=== PATIENT | female | born 1975 | race Caucasian/White ===

== ENCOUNTER 2017-09-13 20:24 | Inpatient (IN) ==
[2017-09-13] MEDS ORDERED: CALCIUM CARBONATE Chewable 500mg TABLET PO PRN ×2 (20:38→23:56)
[2017-09-13] MEDS ORDERED: ACETAMINOPHEN 500 MG TABLET PO PRN ×2 (20:38→23:56)
[2017-09-13] MEDS ORDERED: MAG-AL + SIM ORAL LIQUID 30ml PO PRN ×2 (20:38→23:56)
[2017-09-13] MEDS ORDERED: CARBOPROST 250 MCG/ML INJECTION IM PRN (20:38)
[2017-09-13] MEDS ORDERED: LR 1,000 ML IV PRN (20:38)
[2017-09-13] MEDS ORDERED: METHYLERGONOVINE 0.2 MG/ML INJECTION IM PRN (20:38)
[2017-09-13] MEDS ORDERED: LIDOCAINE 1% (10mg/ml) 2mL INJ PF SDV ID PRN (20:38)
[2017-09-13] MEDS ORDERED: AMPICILLIN 1 GM in NS 100 ML IV SCH (20:45)
[2017-09-13] MEDS ORDERED: D5LR 1,000 ML IV PRN (20:49)
[2017-09-13] MEDS ORDERED: OXYTOCIN DRIP 30 UNIT/500 ML ML IV PRN (20:49)
--- OUTSIDE RECORDS SUMMARY | 2017-09-13 20:51 | External Medical Summary | Continuity of Care Document ---
:1975 Author Organization [facility] Address [address] [place], [place] [id number] Phone Care Team Providers Name Role Phone Radha Holloway MD Unavailable Unavailable Allergies, Adverse Reactions, Alerts Substance Reaction Severity Status No Known Drug Allergies Unknown Active Medications Medication Instructions Dosage Effective Dates Status Comments (start - stop) Zyrtec 10 mg capsule - Active Multi For Her 18 mg - Active iron-600 mcg-40 mcg capsule Stool Softener 50 mg take 1 capsule (50MG) 50 MG - Active capsule by oral route every day at bedtime as needed iron ER 325 mg (65 mg - Active iron) capsule,extended release sertraline 25 mg take 1 tablet by oral 25 MG - Active tablet route every day VITAMIN E (unknown - Active strength) VITAMIN D3 (unknown - Active strength) VITAMIN B-6 (unknown - Active strength) CALCIUM (unknown take 1 by Oral route - Active strength) every day Problems Condition Effective Dates (start - stop) Clinical Status 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) w/o abn findings Supervision of elderly multigravida, - third trimester 34 weeks gestation of - Supervision of elderly multigravida, - first trimester Encntr screen for infections w sexl - mode of transmiss Encounter for screening for oth - infec/parastc diseases Encounter for screening of - mother 8 weeks gestation of - Supervision of elderly multigravida, - second trimester 16 weeks gestation of - Supervision of elderly multigravida, - first trimester 12 weeks gestation of - Supervision of elderly multigravida, - second trimester 24 weeks gestation of - Supervision of elderly multigravida, - second trimester 20 weeks gestation of - Supervision of elderly multigravida, - second trimester 20 weeks gestation of - Supervision of elderly multigravida, - third trimester 28 weeks gestation of - Supervision of elderly multigravida, - third trimester 36 weeks gestation of - Supervision of elderly multigravida, - third trimester 30 weeks gestation of - Supervision of elderly multigravida, - third trimester 36 weeks gestation of - Supervision of elderly multigravida, - third trimester 32 weeks gestation of - Pap Smear Screening, Cervix - Procedures Procedure Date OB Visit No Charge Results Test Name Date and Time Measure Units Reference Range Abnormal Flag Comments Unknown Advance Directives Directive Yes / No Effective Date File Name Unknown Encounters Encounter Practice Location Reason(s) Diagnoses Date Provider Care Team Description For Visit Members Juan Antonio Yan Supervision of Oct-2 [place] Referring In Womens elderly - [place]. 700 Provider: giselle Camacho, 7 Medical [place] [address] [email or web address] [place] R, 1522, weeks gestation [place] Peterson, of 120, Medical [facility] [id number], [place], [facility] 120, [place] [id number] Yuriy, tel: , [place]. [place], [id number] tel: [phone]. [phone] tel:[phone] Juan Antonio Yan Supervision of Oct-2 [place] Referring In Womens Ultrasound elderly 5-201 [place]. 700 Provider: giselle Camacho, 7 Medical [place] PO Box third [id number] [place] R, 1522, weeks gestation [place] Peterson, of 120, Medical [facility] [id number], [place], [place] 120, [place] [id number] Yuriy, tel: , [place]. [place], tel: [phone]. [phone] tel:[phone] Juan Antonio Yan Supervision of Oct-1 [place] Referring In Womens elderly 0-201 [place]. 700 Provider: Health [place], multigravida, 7 Medical [place] PO Box third [email or web address] Center [place] R, 1522, weeks gestation [place] Peterson, of 120, Medical [facility] [id number], [place], [place] 120, [place] [id number] Yuriy, tel: , [place]. [place], tel: [phone]. [phone] tel:[phone] Juan Antonio Yan Supervision of Sep-2 [place] Referring In Womens elderly 6-201 [place]. 700 Provider: Sadia RAYA, jesugravijennifer, 7 Medical [place] PO Box third [id number] Center [place] R, 1522, weeks gestation [place], of 120, Medical [facility] [id number], [place], [place] 120, [place] [id number] Yuriy, tel: , [place]. [place], tel: [phone]. [id number] tel:[phone] Juan Antonio Yan Supervision of Sep-1 [place] Referring In Womens elderly 2-201 [place]. 700 Provider: Sadia RAYA, jesugravida, 7 Medical [place] PO Box third [email or web address] Center [place] R, 1522, weeks gestation [place] Peterson, of 120, Medical [facility] [id number], [place], [place] 120, [place] [id number] Yuriy, tel: , [place]. [place], tel: [phone]. [phone] tel:[phone] Juan Antonio Yan Supervision of Aug-2 [place] Referring In Womens elderly 9-201 [place]. 700 Provider: Health [place], multigravida, 7 Medical [place] PO Box third [email or web address] Center [place] R, 1522, weeks gestation [place] Peterson, of 120, Medical [facility] [id number], [place], [place] 120, [place] [id number] Yuriy, tel: , [place]. [place], tel: [phone]. [id number] tel:[phone] Juan Antonio Yan Supervision of Aug-0 [place] Referring In Womens elderly 1-201 [place]. 700 Provider: jesu Camachogravijennifer, 7 [facility] Box second Center [place] R, 1522, [email or web address] weeks [place] Peterson, gestation of 120, Medical [place], Yuriy, [place] [id number], [place], [place] 120, [place] [id number] Yuriy, tel: , [place]. [place] tel: [phone]. [id number] tel:[phone] Juan Antonio Yan Supervision of Senthil-0 [place] Referring In Womens elderly 5-201 [place]. 700 Provider: eryn Camachoavijennifer, 7 [facility] Center [place] R, 1522, [id number] weeks [place] Peterson, gestation of 120, Medical [place], [facility] [id number], [place], [place] 120, [place] [id number] Yuriy, tel: , [place]. [place] tel: [phone]. [phone] tel:[phone] Juan Antonio Yan Supervision of Senthil-0 [place] Referring In Womens Ultrasound elderly 5-201 [place]. 700 Provider: eryn Camachoavijennifer, 7 [facility] second Center [place] R, 1522, [email or web address] weeks [place] Peterson, gestation of 120, Medical [place], [facility] [id number], [place], [place] 120, [place] [id number] Yuriy, tel: , [place]. [place] tel: [phone]. [phone] tel:[phone] Juan Antonio Yan Supervision of Richy-0 [place] Referring In Womens elderly 6-201 [place]. 700 Provider: jesu Camachogravijennifer, 7 [facility] second Center [place] R, 1522, [id number] weeks [place] Peterson, gestation of 120, Medical [place], [facility] [id number], [place], [place] 120, [place] [id number] Yuriy, tel: , [place]. [place], tel: [phone]. [id number] tel:[phone] Juan Antonio Yan Supervision of [place] Referring In Womens elderly [place]. 700 Provider: Sadia RAYA, multigravida, 7 Medical [place] PO Box first [email or web address] Center [place] R, 1522, weeks gestation , [place] [address] [place], of 120, Medical [place], Yuriy, [place] [id number], [place], [place] 120, [place] [id number] Yuriy, tel: , [place]. [place], tel: [phone]. [phone] tel:[phone] Juan Antonio Yan Supervision of [place] Referring In Womens elderly - [place]. 700 Provider: Sadia RAYA, multigravida, 7 Medical [place] PO Box first Center [place] R, 1522, trimesterEncntr , [place] [address] Gabby, screen for 120, Medical [place], infections w sexl Yuriy, [place] [id number], mode of [place], [facility] 120, [place] transmissEncounte [id number] Yuriy, tel: r for screening , [place]. [place] for oth tel:[phone]. 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 Provider: Sadia RAYA, (routine) w/o abn 6 700 [facility] Box findingsPap Smear Medical [place] R, 1522, Screening, Cervix Center [address], [facility], 120, [place] [id number], Yuriy, [facility] 120, [place] Yuriy RHODES, tel:[phone] [place], , [place]. [id number]. tel: tel: [phone] Juan Antonio Yan Sep- [place] Referring In Womens [place]. 700 Provider: Sadia RAYA, 4 Medical [facility] Box Center [place] R, 1522, , [place] [address] [place], 120, Medical [facility] [id number], [place], [place] 120, [place] [id number] Yuriy, tel: , [place]. [place], tel: [phone]. [phone] tel:[phone] Associates Yuriy Jul- [place] Referring In Womens 3-201 [place]. 700 Provider: Health [place], 2 Medical [place] PO Box [place] Seo 1522, , [place] 700 [place], 120, [facility] [id number], [place], [place] 120, [place] [id number] [place], tel: , [place]. [place], tel: [phone]. [id number] tel:[phone] Associates Yuriy Jan-2 Jamil[place] In Womens 9-200 [place]. Health [place], 9 700 [place] [id number], [place] [address] [place], [facility], 120, [id number], [place], [place], tel: [phone] , [place]. tel: [phone] Family History Family Member Diagnosis Age At Onset Mother Anemia Maternal Grandfather Anemia Paternal aunt Cancer, breast Paternal grandmother Liver Disease Father Prostate Cancer Immunizations Vaccine Date Status Comments Influenza, injectable, completed Source: New Immunization Record quadrivalent, preservative free, 3 yrs or older Tdap completed Source: New Immunization Record Influenza, injectable, completed Source: Other Provider quadrivalent, preservative free, 3 yrs or older Payers Payer name Insurance type Covered libertarian ID Authorization(s) [facility] [id number] [facility] [id number] [facility] [id number] Social History Type Description Quantity Date Captured Alcohol Use Details No Caffeine Use Details Unknown Tobacco Use Status Unknown Smoking Status Never smoker Vital Signs Date / Height Weight BMI Pulse Blood Temperature Respiratory Body Head BMI Time: Rate Pressure Rate Surface Circumference percentile Area 209.20 35.3 129/75 -2017 lbs 5 mm[Hg] 3:05 kg/m PM eter (2) Chief Complaint And Reason For Visit Unknown Chief Complaint And Reason For Visit Reason For Referral Reason For Referral Unknown Plan Of Care Date Type Action Status Goal Lifestyle education regarding completed diet Appointment Teetee Larry BOOKED Appointment Teetee Larry BOOKED Future Order: Lab Order Pap Smear With HPV Reflex If Ordered ASCUS (WPMPap1) Future Order: Radiology Order OB Detailed Complete Ultrasound Ordered ([id number]) Future Order: Radiology Order Ultrasound OB Follow-up ([id number]) Ordered Future Order: Lab Order Pap Smear With HPV Reflex If Ordered ASCUS (WPMPap1) Date Type Problem Goal Intervention Status Start Date Unknown. History Of Present Illness Encounter Date Complaint History Of Present Illness This patient has no known history of present illness Functional Status Encounter Date Functional Assessment Cognitive Assessment Unknown Medications Administered Medication Instructions Dosage Effective Dates (start - stop) Status Comments Drug Treatment Unknown Instructions Date Instruction Additional Information HIV and other routine tests risk factors identified by history anticipated course of care nutrition and weight gain counseling, special diet toxoplasmosis precautions (cats / raw meat) sexual activity exercise indications for ultrasound influenza vaccine environmental / work hazards travel use of any medications (including supplements, vitamins, herbs, OTC drugs) domestic violence seat belt use childbirth classes / hospital facilities hospital registration genetic testing Giving encouragement to exercise Related to Body mass index 29.0-29.9 Lifestyle education regarding diet Related to Body mass index 29.0-29.9
--- OUTSIDE RECORDS SUMMARY | 2017-09-13 20:51 | External Medical Summary | Continuity of Care Document ---
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) w/o abn findings Supervision of elderly multigravida, - first trimester Encounter for screening of - mother 8 weeks gestation of - Encntr screen for infections w sexl - mode of transmiss Encounter for screening for oth - infec/parastc diseases Supervision of elderly multigravida, - second trimester 16 weeks gestation of - Supervision of elderly multigravida, - first trimester 12 weeks gestation of - Supervision of elderly multigravida, - second trimester 20 weeks gestation of - Supervision of elderly multigravida, - second trimester 20 weeks gestation of - Pap Smear Screening, Cervix - Procedures Procedure Date Unknown Results Test Name Date and Time Measure Units Reference Range Abnormal Flag Comments Unknown Advance Directives Directive Yes / No Effective Date File Name Unknown Encounters Encounter Practice Location Reason(s) Diagnoses Date Provider Care Team Description For Visit Members Juan Antonio Yan Supervision of Apr-0 [place] Referring In Womens elderly 5-201 [place]. 700 Provider: Sadia RAYA, erynavijennifer, 7 Medical [place] PO Box second Center [place] R, 1522, [id number] weeks [place] Peterson, gestation of 120, Medical [place], [facility] [place] , [place], [facility] 120, [place] [id number] Yuriy, tel: , [place]. [place], tel: [phone]. [phone] tel:[phone] Juan Antonio Yan Supervision of Apr-0 [place] Referring In Womens Ultrasound elderly 5-201 [place]. 700 Provider: eryn Camachoavijennifer, 7 Medical [place] PO Box second Center [place] R, 1522, [email or web address] weeks [place] Peterson, gestation of 120, Medical [place], [facility] [id number], [place], [facility] 120, [place] [id number] Yuriy, tel: , [place]. [place], tel: [phone]. [phone] tel:[phone] Juan Antonio Yan Richy-3 [place] In Womens 0-201 [place]. 700 Sadia RAYA, 7 Medical PO Box Center 1522, [place] Peterson, 120, [place], Yuriy [id number], [place], [place] [id number] tel: , [place]. tel: [phone] Juan Antonio Yan Supervision of Richy-0 [place] Referring In Womens elderly 6-201 [place]. 700 Provider: Sadia RAYA, jesugravida, 7 Medical [place] PO Box second Center [place] R, 1522, [email or web address] weeks Dr, [place] 700 [place], gestation of 120, Medical [place], Yuriy, [place] [id number], [place], [facility] 120, [place] [id number] Yuriy, tel: , [place]. [place], tel:[phone]. [phone] tel:[phone] Juan Antonio Yan Supervision of [place] Referring In Womens elderly 9- [place]. 700 Provider: Sadia RAYA, multigravida, 7 Medical [place] PO Box first [email or web address] Center [place] R, 1522, weeks gestation , [place] [address] [place], of 120, Medical [place], [place], [place] [id number], [place], [facility] 120, [place] [id number] Yuriy, tel: , [place]. [place], tel:[phone]. [phone] tel:[phone] Juan Antonio Yan Supervision of [place] Referring In Womens elderly - [place]. 700 Provider: Sadia RAYA, multigravida, 7 Medical [place] PO Box first Center [place] R, 1522, trimesterEncounte , [place] [address] [place], r for 120, Medical [place], screening of [facility] [id number], mother8 weeks [place], [facility] 120, [place] gestation of [id number] Yuriy, tel: pregnancyEncntr , . [place], screen for tel:[phone]. infections w sexl [id number] tel: mode of [id number] transmissEncounte r for screening for oth infec/parastc diseases Juan Antonio Yan Encntr for nurse obgyn Dec- Navarro Referring In Womens exam (general) - [facility]. Provider: Sadia RAYA, (routine) w/o abn 6 700 [place] PO Box findingsPap Smear Medical [place] R, 1522, Screening, Cervix Center [facility] Dr Gabby, [facility], 120, [place] [id number], [place], [facility] 120, [place] Yuriy RHODES, tel: [phone] [place], , [place]. [id number]. tel: tel:[phone] Juan Antonio Yan Sep- [place] Referring In Womens - [place]. 700 Provider: Health [place], 4 Medical [facility] [place] Seo 1522, , [place] 700 [place], 120, Medical [facility] [id number], [place], [facility] 120, [place] [id number] [place], tel:+ , [place]. [place], tel: [phone]. [phone] tel:[phone] Associates Y[facility]y Jul-2 [place] Referring In Womens 3-201 [place]. 700 Provider: Health [place], 2 Medical [facility] [place] Seo 1522, , [place] 700 [place], 120, Medical [facility] [id number], [place], [place] 120, [place] [id number] [place], tel: , [place]. [place], tel: [phone]. [phone] tel:[phone] Associates Y[facility]y Apr-2 Jamilah In Womens 9-200 Jayne. Health [place], 9 700 [facility] 1522, Center Dr Gabby, [facility], 120, [id number], [place], [place], tel: [phone] , [place]. tel: [phone] Family History Family Member Diagnosis Age At Onset Mother Anemia Maternal Grandfather Anemia Paternal aunt Cancer, breast Paternal grandmother Liver Disease Father Prostate Cancer Immunizations Vaccine Date Status Comments Influenza, injectable, quadrivalent, completed Source: Other Provider preservative free, 3 yrs or older Payers Payer name Insurance type Covered republican ID Authorization(s) [facility] [id number] Social History Type Description Quantity Date Captured Unknown Vital Signs Date / Height Weight BMI Pulse Blood Temperature Respiratory Body Head BMI Time: Rate Pressure Rate Surface Circumference percentile Area Unknown Chief Complaint And Reason For Visit Unknown Chief Complaint And Reason For Visit Reason For Referral Reason For Referral Unknown Plan Of Care Date Type Action Status Goal Lifestyle education regarding completed diet Appointment Teetee Larry BOOKED Future Order: Lab Order Pap Smear With HPV Reflex If Ordered ASCUS (WPMPap1) Future Order: Radiology Order OB Detailed Complete Ultrasound Ordered ([id number]) Future Order: Lab Order Pap Smear With [...]
--- OUTSIDE RECORDS SUMMARY | 2017-09-13 20:51 | External Medical Summary | Continuity of Care Document ---
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 700 Provider: giselle Camacho, 7 [facility] [place] R, 1522, [id number] weeks [place], gestation of 120, Medical [place], [facility] , [place], [place] 120, [place] [id number] Yuriy, tel: , [place]. [place], tel: [phone]. [phone] tel:[phone] Juan Antonio Yan Supervision of [place] Referring In Womens elderly [place]. 700 Provider: giselle Camacho, 7 [facility] [place] R, 1522, weeks [place] Peterson, gestation of 120, Medical [place], [facility] [id number], [place], [place] 120, [place] [id number] Yuriy, tel: , [place]. [place], tel: [phone]. [id number] tel:[phone] Juan Antonio Yan Supervision of [place] Referring In Womens Ultrasound elderly [place]. 700 Provider: giselle Camacho, 7 [facility] [place] R, 1522, [email or web address] weeks [place], gestation of 120, Medical [place], [facility] [id number], [place], [place] 120, [place] [id number] Yuriy, tel: , [place]. [place] tel: [phone]. [phone] tel:[phone] Juan Antonio Yan Supervision of [place] Referring In Womens elderly [place]. 700 Provider: Sadia RAYA, multigravida, 7 Medical [place] PO Box second Center [place] R, 1522, [email or web address] weeks , [place], gestation of 120, Medical [place], [facility] [id number], [place], [place] 120, [place] [id number] Yuriy, tel: , [place]. [place] tel: [phone]. [id number] tel:[phone] Juan Antonio Yan Supervision of [place] Referring In Womens elderly [place]. 700 Provider: Sadia RAYA, multigravida, 7 Medical [place] PO Box first [email or web address] Center [place] R, 1522, weeks gestation , [address], of 120, Medical [place], Yuriy, [place] [id number], [place], [place] 120, [place] [id number] Yuriy, tel: , . [place] tel: [phone]. [id number] tel:[phone] Juan Antonio Yan Supervision of [place] Referring In Womens elderly [place]. 700 Provider: Sadia RAYA, multigravida, 7 Medical [place] PO Box first Center [place] R, 1522, trimesterEncntr , [place] [address] [place], screen for 120, [facility], infections w sexl Yuriy, [place] [id number], mode of [place], [place] 120, [place] transmissEncounte [id number] Yuriy, tel: r for screening , [place]. [place] for oth tel: [phone]. 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 Provider: Sadia RAYA, (routine) w/o abn 6 700 [facility] Box findingsPap Smear [facility] [place] R, 1522, Screening, Cervix [place] [address], [facility], 120, Center [id number], [place], [place] 120, [place], Yuriy, tel: [phone] [place], , [place]. [id number]. tel: tel: [phone] Juan Antonio Yan Dec-1 [place] Referring In Womens 6-201 [place]. 700 Provider: Health DORO[place], 4 [facility] [address], [address], 120, Medical [facility] [id number], [place], [place] 120, [place] [id number] Yuriy, tel: , [place]. [place], tel: [phone]. [id number] tel:[phone] Juan Antonio Yan Jul-2 [place] Referring In Womens 3-201 [place]. 700 Provider: Health [place], 2 [facility] [address]ak [address], , [address], 120, Medical [facility] [id number], [place], [place] 120, [place] [id number] Yuriy, tel: , [place]. [place], tel: [phone]. [id number] tel:[phone] Juan Antonio Yan Apr-2 Jamilah In Womens 9-200 Jayne. Health [place], [address] [place] [address] 1522, [place] [address] [place], [facility], 120, [id number], Yan, [place], tel: [phone] , [place]. tel: [phone] Family History Family Member Diagnosis Age At Onset Mother Anemia Maternal Grandfather Anemia Paternal aunt Cancer, breast Paternal grandmother Liver Disease Father Prostate Cancer Immunizations Vaccine Date Status Comments Influenza, injectable, quadrivalent, completed Source: Other Provider preservative free, 3 yrs or older Payers Payer name Insurance type Covered libertarian ID Authorization(s) [facility] [id number] Social History Type Description Quantity Date Captured Alcohol Use Details No Caffeine Use Details Unknown Tobacco Use Status Unknown Smoking Status Never smoker Vital Signs Date / Height Weight BMI Pulse Blood Temperature Respiratory Body Head BMI Time: Rate Pressure Rate Surface Circumference percentile Area 198.90 33.6 132/75 -2017 lbs 1 mm[Hg] 3:12 kg/m PM eter (2) Chief Complaint And Reason For Visit Unknown Chief Complaint And Reason For Visit Reason For Referral Reason For Referral Unknown Plan Of Care Date Type Action Status Goal Lifestyle education regarding completed diet Appointment Teetee Larry BOOKED Future Order: Lab Order Pap Smear With HPV Reflex If Ordered ASCUS (WPMPap1) Future Order: Radiology Order OB Detailed Complete Ultrasound Ordered ([id number]) Future Order: Lab Order Pap Smear With [...]
--- OUTSIDE RECORDS SUMMARY | 2017-09-13 20:52 | External Medical Summary | Continuity of Care Document ---
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) - (routine) w/o abn findings [...] of - Pap Smear Screening, Cervix - Supervision of elderly multigravida, - third trimester 30 weeks gestation of - Procedures Procedure Date OB Visit No Charge Glucose test Hemoglobin count, colorimetric Hematocrit blood count Venpnctr fngr/heel/ear stick routne Results Test Name Date and Time Measure Units Reference Range Abnormal Flag Comments Panel Description: Glucose [Mass/volume] in Serum or Plasma --1 hour post 50 g glucose PO GLUCOSE, 108 mg/dL <140 N Test performed at [facility] GESTATIONAL SCREEN 16:04:00 DIAGNOSTICS [id number] (50G)-[address] [place] [address]Oetfhejf: TEMI NUNES DO,MPH Panel Description: HEMOGLOBIN + HEMATOCRIT HEMOGLOBIN 16:04:00 10.0 g/dL 11.7-15.5 L HEMATOCRIT 16:04:00 29.4 % 35.0-45.0 L REPORT COMMENT:FASTING :NOTest performed at [facility] [id number] [place] [address]Smiugsoh: TEMI NUNES DO,MPH Advance Directives Directive Yes / No Effective Date File Name Unknown Encounters Encounter Practice Location Reason(s) Diagnoses Date Provider Care Team Description For Visit Members Juan Antonio Yan Supervision of [place] Referring In Womens elderly 2-201 [place]. 700 Provider: Health PA, multigravida, 7 Medical Sajan PO Box third [email or web address] Center [place] R, 1522, weeks gestation [place] Ransom, of 120, Medical [place], [facility] [id number], [place], [place] 120, [place] [id number] Yuriy, tel: , [place]. [place], tel: [phone]. [id number] tel:[phone] Juan Antonio Yan Supervision of May-2 [place] Referring In Womens elderly 9-201 [place]. 700 Provider: Health DOROTA, jesugravida, 7 Medical Sajan PO Box third [email or web address] Center [place] R, 1522, weeks gestation [place] Peterson, of 120, Medical [place], [facility] [id number], [place], [place] 120, [place] [id number] Yuriy, tel: , [place]. [place], tel: [phone]. [phone] tel:[phone] Juan Antonio Yan Supervision of May-0 [place] Referring In Womens elderly 1-201 [place]. 700 Provider: Sadia RAYA, jesugravijennifer, 7 Medical Sjaan PO Box second Center [place] R, 1522, [id number] weeks Bou[place] Peterson, gestation of 120, Medical [place], [facility] [id number], [place], [place] 120, [place] [id number] Yuriy, tel: , [place]. [place], tel: [phone]. [id number] tel:[phone] Juan Antonio Yan Supervision of Apr-0 [place] Referring In Womens elderly 5-201 [place]. 700 Provider: Sadia RAYA, jesugravijennifer, 7 Medical Sajan PO Box second Center [place] R, 1522, [id number] weeks [place] Peterson, gestation of 120, Medical [place], Yuriy, [place] [id number], [place], [place] 120, [place] [id number] Yuriy, tel: , [place]. [place] tel: [phone]. [id number] tel:[phone] Juan Antonio Yan Supervision of Apr-0 [place] Referring In Womens Ultrasound elderly 5-201 [place]. 700 Provider: Health DOROTA, jesugravida, 7 Medical Sajan PO Box second Center [place] R, 1522, [email or web address] weeks [place] Peterson, gestation of 120, Medical [place], Yuriy, [place] [id number], [place], [place] 120, [place] [id number] Yuriy, tel: , [place]. [place] tel: [phone]. [id number] tel:[phone] Juan Antonio Yan Supervision of [place] Referring In Womens elderly [place]. 700 Provider: Sadia RAYA, multigravida, 7 Medical [place] PO Box second [place] R, 1522, weeks , [facility] Gerardo Ransom, gestation of 120, Medical [place], [facility] [id number], [place], [place] 120, [place] [id number] Yuriy, tel: , [place]. [place], tel: [phone]. [id number] tel:[phone] Juan Antonio Yan Supervision of [place] Referring In Womens elderly [place]. 700 Provider: Sadia RAYA, multigravida, 7 Medical [place] PO Box first Center [place] R, 1522, weeks gestation , [address], of 120, Medical [place], [facility] [id number], [place], [place] 120, [place] [id number] Yuriy, tel: , [place]. [place] tel: [phone]. [id number] tel:[phone] Juan Antonio Yan Supervision of [place] Referring In Womens elderly [place]. 700 Provider: Sadia RAYA, multigravida, 7 Medical [facility] Box first [place] R, 1522, trimesterEncntr , [address], screen for 120, Medical [place], infections w sexl Yuriy [place] [id number], mode of [place], [place] 120, [place] transmissEncounte [id number] uYriy, tel: r for screening , [place]. [place] for oth tel: [phone]. infec/parastc [id number] tel: diseasesEncounter [phone] for screening of mother8 weeks gestation of Juan Antonio Yan Pap Smear Navarro Referring In Womens Screening, Brianna. Provider: Sadia RAYA, CervixEncntr for [facility] Box rn gynecology exam Medical [place] R, 1522, (general) Center 700 Ransom, (routine) w/o abn , [facility] Medical MEAGAN, [facility] 120, Center [id number], Yan, [facility] 120, Yuriy RHODES, tel:[phone] MEAGAN, , . [id number]. tel: tel:[phone] Associates Yuriy Dec- [place] Referring In Womens 6-201 [place]. 700 Provider: Health DOROTA, 4 [facility] Marcos Saul2, , [address], 120, Medical Yuriy [facility] [id number], [place], [facility] 120, [place] [id number] Yuriy, tel: , . [place], tel: [phone]. [id number] tel:[phone] Juan Antonio Yan Jul- [place] Referring In Womens 3-201 [place]. 700 Provider: Health DOROTA, 2 [facility] [place] Seo, 1522, , [address], 120, Medical Yuriy [facility] [id number], [place], [facility] 120, [place] [id number] Yuriy, tel: , [place]. [place], tel: [phone]. [id number] tel:[phone] Juan Antonio Yan Jan-2 Jamilah In Womens 9-200 Jayne. Health PA, 9 700 [facility] 1522, [address] Gabby, [facility], 120, [id number], Yan, MEAGAN, tel: [phone] , [place]. tel: [phone] Family History Family Member Diagnosis Age At Onset Mother Anemia Maternal Grandfather Anemia Paternal aunt Cancer, breast Paternal grandmother Liver Disease Father Prostate Cancer Immunizations Vaccine Date Status Comments Influenza, injectable, quadrivalent, completed Source: Other Provider preservative free, 3 yrs or older Payers Payer name Insurance type Covered democrat ID Authorization(s) YHOANNES ARTIS [id number] Social History Type Description Quantity Date Captured Alcohol Use Details No Caffeine Use Details Unknown Tobacco Use Status Unknown Smoking Status Never smoker Vital Signs Date / Height Weight BMI Pulse Blood Temperature Respiratory Body Head BMI Time: Rate Pressure Rate Surface Circumference percentile Area 203.60 34.4 123/66 2017 lbs 0 mm[Hg] 3:09 kg/m PM eter (2) Chief Complaint And Reason For Visit Unknown Chief Complaint And Reason For Visit Reason For Referral Reason For Referral Unknown Plan Of Care Date Type Action Status Goal Lifestyle education regarding completed diet Appointment Teetee Larry BOOKED Appointment Teetee Larry BOOKED Appointment Teetee Larry BOOKED Appointment Teetee Larry BOOKED Future Order: Lab Order Pap Smear With HPV Reflex If Ordered ASCUS ([id number]) Future Order: Radiology Order OB Detailed Complete Ultrasound Ordered ([id number]) Future Order: Lab Order Pap Smear With [...]
--- OUTSIDE RECORDS SUMMARY | 2017-09-13 20:52 | External Medical Summary | Continuity of Care Document ---
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 700 Provider: Health jesu RAYAgravijennifer, 7 Medical Sajan PO Box third [email or web address] Center [place] R, 1522, weeks gestation [place] Peterson, of 120, Medical [facility]y [facility] [id number], [place], [facility] [place] 120, [place] [id number] Yuriy, tel:+2 , . [place], tel: [phone]. [id number] tel:[phone] Juan Antonio Yan Supervision of Sep-1 [place] Referring In Womens elderly 2-201 S[place]. 700 Provider: Health jesu RAYAgravida, 7 Medical Sajan PO Box third [email or web address] Center [place] R, 1522, weeks gestation [place] Peterson, of 120, Medical Yuriy [facility] [id number], [place], [place] 120, [place] [id number] Yuriy, tel:+2 , . [place], tel: [phone]. [id number] tel:[phone] Juan Antonio Yan Supervision of [place] Referring In Womens elderly 9-201 [place]. 700 Provider: Health jesu RAYAgravijennifer, 7 Medical [place] PO Box third [id number] Center [place] R, 1522, weeks gestation [place] Peterson, of 120, Medical [place], Yuriy, [place] [id number], [place], [place] 120, [place] [id number] Yuriy, tel:+ , [place]. [place], tel: [phone]. [id number] tel:[phone] Juan Antonio Yan Supervision of Aug-0 [place] Referring In Womens elderly 1-201 [place]. 700 Provider: jesu Camachogravijennifer, 7 Medical [place] PO Box second Center [place] R, 1522, [email or web address] weeks [place] Peterson, gestation of 120, Medical [place], Yuriy, [place] [id number], [place], [place] 120, [place] [id number] Yuriy, tel:+ , [place]. [place], tel: [phone]. [id number] tel:[phone] Juan Antonio Yan Supervision of Senthil-0 [place] Referring In Womens elderly 5-201 [place]. 700 Provider: eryn Camachoavijennifer, 7 Medical [place] PO Box second Center [place] R, 1522, [id number] weeks [place] Peterson, gestation of 120, Medical [place], Yuriy, [place] [id number], [place], [place] 120, [place] [id number] Yuriy, tel:+ , [place]. [place], tel: [phone]. [id number] tel:[phone] Juan Antonio Yan Supervision of Senthil-0 [place] Referring In Womens Ultrasound elderly 5-201 [place]. 700 Provider: jesu Camachogravida, 7 Medical [place] PO Box second Center [place] R, 1522, [email or web address] weeks [place] Peterson, gestation of 120, Medical [place], Yuriy, [place] [id number], [place], [place] 120, [place] [id number] Yuriy, tel: , [place]. [place], tel: [phone]. [id number] tel:[phone] Juan Antonio Yan Supervision of Richy-0 [place] Referring In Womens elderly 6-201 [place]. 700 Provider: Health PA, multigravida, 7 Medical [facility] Box second Center [place] R, 1522, [id number] weeks , [facility] [place] Gerardo Pierre, gestation of 120, Medical [place], Yuriy, [place] [id number], [place], [place] 120, [place] [id number] Yuriy, tel: , [place]. [place], tel: [phone]. [id number] tel:[phone] Juan Antonio Yan Supervision of [place] Referring In Womens elderly 9-201 [place]. 700 Provider: Sadia RAYA, multigravida, 7 Medical [facility] Box first [id number] Center [place] R, 1522, weeks gestation , [facility] [place] Gerardo Pierre, of 120, Medical [place], Yuriy, [place] [id number], [place], [place] 120, [place] [id number] Yuriy, tel: , [place]. [place], tel: [phone]. [id number] tel:[phone] Juan Antonio Yan Supervision of [place] Referring In Womens elderly - [place]. 700 Provider: Sadia RAYA, multigravijennifer, 7 Medical [facility] Box first [place] R, 1522, trimesterEncntr , [place] [address] Gabby, screen for 120, Medical [place], infections w sexl Yuriy, [place] [id number], mode of [place], [facility] [place] 120, [place] transmissEncounte [id number] Yuriy, tel:2 r for screening , [place]. [place] for oth tel: [phone]. 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 Provider: Sadia RAYA, (routine) w/o abn 6 700 [facility] findingsPap Smear Medical [place] R, 1522, Screening, Cervix [place] [address], [facility], 120, Center [id number], Yuriy, [facility] [place] 120, [place] Yuriy RHODES, tel:[phone] [place], , [place]. [id number]. tel: tel: [phone] Juan Antonio Yan Dec- [place] Referring In Womens 6-201 [place]. 700 Provider: Sadia RAYA, [address] [facility] [address], [facility] [place] 700 Gabby, 120, Medical [place], [facility] [id number], [place], [facility] [place] 120, [place] [id number] Yuriy, tel: , [place]. [place], tel: [phone]. [id number] tel:[phone] Juan Antonio Yan [place] Referring In Womens 3-201 [place]. 700 Provider: Sadia RAYA, [address] [facility] [address], [place] 700 Gabby, 120, Medical [place], [facility] [id number], [place], [place] 120, [place] [id number] Yuriy, tel: , . [place], tel: [phone]. [id number] tel:[phone] Juan Antonio Yan Jan- Jamilah In Womens 9-200 Jayne. Health DOROTA, 9 700 [facility] 1522, [address] Dr Gabby, [facility], 120, [id number], Yan, MEAGAN, tel: [phone] , [place]. tel: [phone] Family History Family Member Diagnosis Age At Onset Mother Anemia Maternal Grandfather Anemia Paternal aunt Cancer, breast Paternal grandmother Liver Disease Father Prostate Cancer Immunizations Vaccine Date Status Comments Influenza, injectable, quadrivalent, completed Source: Other Provider preservative free, 3 yrs or older Payers Payer name Insurance type Covered libertarian ID Authorization(s) [facility] [id number] Social History Type Description Quantity Date Captured Alcohol Use Details No Caffeine Use Details Unknown Tobacco Use Status Unknown Smoking Status Never smoker Vital Signs Date / Height Weight BMI Pulse Blood Temperature Respiratory Body Head BMI Time: Rate Pressure Rate Surface Circumference percentile Area 203.20 34.3 127/72 -2017 lbs 4 mm[Hg] 3:03 kg/m PM eter (2) Chief Complaint And [...] Radiology Order OB Detailed Complete Ultrasound Ordered ([id number]) Future Order: Lab Order Pap Smear With [...]
--- OUTSIDE RECORDS SUMMARY | 2017-09-13 20:52 | External Medical Summary | Continuity of Care Document ---
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 700 Provider: giselle Camacho, 7 Medical Sajan PO Box third [id number] Center [place] R, 1522, weeks gestation [place] Peterson, of 120, Medical [facility] [id number], [place], [place] 120, [place] [id number] Yuriy, tel: , . [place], tel: [phone]. [id number] tel:[phone] Juan Antonio Yan Supervision of Jul- [place] Referring In Womens elderly 6-201 [place]. 700 Provider: giselle Camacho, 7 Medical Sajan PO Box third [id number] Center [place] R, 1522, weeks gestation [place] Peterson, of 120, Medical [facility] [id number], [place], [place] 120, [place] [id number] Yuriy, tel: , [facility], tel: [phone]. [id number] tel:[phone] Juan Antonio Yan Supervision of Sep-1 [place] Referring In Womens elderly 2-201 [place]. 700 Provider: eryn Camachoavijennifer, 7 Medical Sajan PO Box third [id number] Center [place] R, 1522, weeks gestation [place] Peterson, of 120, Medical [facility]y [facility] [id number], [place], [place] 120, [place] [id number] Yuriy, tel: , [place]. [place], tel: [phone]. [phone] tel:[phone] Juan Antonio Yan Supervision of Aug-2 [place] Referring In Womens elderly 9-201 [place]. 700 Provider: giselle Camacho, 7 Medical Sajan PO Box third [id number] Center [place] R, 1522, weeks gestation [place] Peterson, of 120, Medical [facility]y [facility] [id number], [place], [place] 120, [place] [id number] Yuriy, tel: , [place]. [place], tel: [phone]. [id number] tel:[phone] Juan Antonio Yan Supervision of Aug-0 [place] Referring In Womens elderly 1-201 [place]. 700 Provider: giselle Camacho, 7 Medical Sajan PO Box second Center [place] R, 1522, [id number] weeks [place] Peetrson, gestation of 120, Medical [place], [facility] [id number], [place], [place] 120, [place] [id number] Yuriy, tel: , [place]. [place] tel: [phone]. [id number] tel:[phone] Juan Antonio Yan Supervision of Senthil-0 [place] Referring In Womens elderly 5-201 [place]. 700 Provider: giselle Camacho, 7 Medical [facility] Box second Center [place] R, 1522, [id number] weeks [place] Peterson, gestation of 120, Medical [place], Yan, [place] [id number], [place], [place] 120, [place] [id number] Yuriy, tel: , [place]. [place] tel: [phone]. [id number] tel:[phone] Juan Antonio Yan Supervision of 0 [place] Referring In Womens Ultrasound elderly 5-201 [place]. 700 Provider: Health DOROTA, multigravida, 7 Medical [facility] Box second Center [place] R, 1522, [id number] weeks [place] Peterson, gestation of 120, Medical [place], Yuriy, [place] [id number], [place], [place] 120, [place] [id number] Yuriy, tel: , [place]. [place], tel: [phone]. [id number] tel:[phone] Juan Antonio Yan Supervision of Mar- [place] Referring In Womens elderly 6-201 [place]. 700 Provider: Health DOROTA, multigravida, 7 [facility] Box second Center [place] R, 1522, [id number] weeks [place] Peterson, gestation of 120, Medical [place], [facility] [id number], [place], [place] 120, [place] [id number] Yuriy, tel: , [place]. [place], tel: [phone]. [id number] tel:[phone] Juan Antonio Yan Supervision of [place] Referring In Womens elderly 9-201 [place]. 700 Provider: Sadia RAYA, multigravida, 7 [facility] Box first [id number] Center [place] R, 1522, weeks gestation [place] Peterson, of 120, Medical Yuriy [facility] [id number], [place], [place] 120, [place] [id number] Yuriy, tel: , [place]. [place], tel: [phone]. [id number] tel:[phone] Juan Antonio Yan Supervision of [place] Referring In Womens elderly 1-201 [place]. 700 Provider: Sadia RAYA, multigravida, 7 [facility] Box first Center [place] R, 1522, trimesterEncntr [place] Peterson, screen for 120, Medical [place], infections w sexl [facility] [id number], mode of [place], [place] 120, [place] transmissEncounte [id number] Yuriy, tel: r for screening , [place]. [place] for oth tel: [phone]. 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 Provider: Sadia RAYA, (routine) w/o abn 6 700 [facility] findingsPap Smear Medical [place] Seo, 1522, Screening, Cervix [facility] Dr Gabby, [facility], 120, [place] [id number], [place], [facility] 120, [facility], tel:[phone] [place], , . [id number]. tel: tel: [phone] Juan Antonio Yan Sep- [place] Referring In Womens 6-201 [place]. 700 Provider: Sadia RAYA, 4 [facility] [place] Seo, 1522, , [place] [address] Gabby, 120, Medical Yuriy [facility] [id number], [place], [place] [address], [id number] Yuriy, tel: , . [place], tel: [phone]. [phone] tel:[phone] Juan Antonio Yan [place] Referring In Womens 3-201 [place]. 700 Provider: Sadia RAYA, 2 [facility] [place] Seo 1522, , [address], 120, [facility] Yuriy [facility] [id number], [place], [facility] 120, [place] [id number] Yuriy, tel: , . [place], tel: [phone]. [id number] tel:[phone] Juan Antonio Yan Jan-2 Jamilah In Womens 9-200 Jayne. Health DOROTA, [address] [place] [address] 1522, [place] [address] Gabby, [facility], 120, [id number] Yan, MEAGAN, tel: [phone] , . tel: [phone] Family History Family Member Diagnosis Age At Onset Mother Anemia Maternal Grandfather Anemia Paternal aunt Cancer, breast Paternal grandmother Liver Disease Father Prostate Cancer Immunizations Vaccine Date Status Comments Influenza, injectable, quadrivalent, completed Source: Other Provider preservative free, 3 yrs or older Payers Payer name Insurance type Covered alliance party ID Authorization(s) SHYAM ARTIS [id number] Social History Type Description Quantity Date Captured Alcohol Use Details No Caffeine Use Details Unknown Tobacco Use Status Unknown Smoking Status Never smoker Vital Signs Date / Height Weight BMI Pulse Blood Temperature Respiratory Body Head BMI Time: Rate Pressure Rate Surface Circumference percentile Area 202.50 34.2 128/73 -2017 lbs 2 mm[Hg] 3:05 kg/m PM eter (2) Chief [...] Radiology Order OB Detailed Complete Ultrasound Ordered ([id number]) Future Order: Lab Order Pap Smear With [...]
--- OUTSIDE RECORDS SUMMARY | 2017-09-13 20:52 | External Medical Summary | Continuity of Care Document ---
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 700 Provider: giselle Camacho, 7 [facility] [place] R, 1522, [id number] weeks [place] Peterson, gestation of 120, Medical [place], [facility] [id number][facility] [place], [place] 120, [place] [id number] Yuriy, tel: , [place]. [place], tel: [phone]. [id number] tel:[phone] Juan Antonio Yan Supervision of [place] Referring In Womens Ultrasound elderly 5-201 [place]. 700 Provider: giselle Camacho, 7 [facility] [place] R, 1522, weeks [place] Peterson, gestation of 120, Medical [place], [facility] [id number], [place], [place] 120, [place] [id number] Yuriy, tel: , [place]. [place], tel: [phone]. [id number] tel:[phone] Juan Antonio Yan Supervision of [place] Referring In Womens elderly 6-201 [place]. 700 Provider: giselle Camacho, 7 [facility] [place] R, 1522, [id number] weeks [place] Peterson, gestation of 120, Medical [place], [facility] [id number], [place], [place] 120, [place] [id number] Yuriy, tel: , . [place] tel: [phone]. [id number] tel:[phone] Juan Antonio Yan Supervision of [place] Referring In Womens elderly [place]. 700 Provider: Sadia RAYA, multigravida, 7 Medical [facility] Box first [id number] Center [place] R, 1522, weeks gestation , [place] [address] Gabby, of 120, Medical [place], Yan, Doyle [id number], [place], [facility] 120, [place] [id number] Yuriy, tel: , [place]. [place], tel: [phone]. [id number] tel:[phone] Juan Antonio Yan Supervision of [place] Referring In Womens elderly - [place]. 700 Provider: Sadia RYAA, multigravida, 7 Medical [facility] Box first Center [place] R, 1522, trimesterEncounte , [place] [address] Gabby, r for 120, [facility], screening of [facility] [id number], mother8 weeks [place], [facility] 120, [place] gestation of [id number] Yuriy, tel: pregnancyEncntr , [place]. [place], screen for tel: [phone]. 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 Provider: Sadia RAYA, (routine) w/o abn 6 700 [facility] findingsPap Smear [facility] [place] Seo, 1522, Screening, Cervix Center [facility] Dr Gabby, [facility], 120, Doyle [id number], [place], [facility] 120, [place] Yuriy RHODES, tel:[phone] [place], , [place]. [id number]. tel: tel: [phone] Juan Antonio Yan Sep- [place] Referring In Womens [place]. 700 Provider: Sadia RAYA, 4 Medical [facility] Box Center [place] R, 1522, , [place] [address] Gabby, 120, Medical Yuriy RHODES, Doyle [id number], [place], [facility] 120, [place] [id number] Yuriy, tel: , [place]. [place], tel: [phone]. [id number] tel:[phone] Associates [facility] Jul- [place] Referring In Womens 3-201 [place]. 700 Provider: Health PA, 2 Medical [place] [address] [place] R, 1522, Dr, Boubacar 700 Gabby, 120, Medical [place], [facility] [address] [id number], [place], [place] [address], [id number] Yan, tel: , . [place], tel: [phone]. [id number] tel:[phone] Associates [facility] Jan- Jamilah In Womens 9-200 Jayne. Health [place], 9 700 [facility] 1522, [address] Dr Gabby, [facility], [facility], [id number], [facility] MEAGAN, tel: [phone] , . tel: [phone] Family History Family Member Diagnosis Age At Onset Mother Anemia Maternal Grandfather Anemia Paternal aunt Cancer, breast Paternal grandmother Liver Disease Father Prostate Cancer Immunizations Vaccine Date Status Comments Influenza, injectable, quadrivalent, completed Source: Other Provider preservative free, 3 yrs or older Payers Payer name Insurance type Covered green party ID Authorization(s) [facility] [id number] Social History Type Description Quantity Date Captured [...] diet Appointment Teetee Larry BOOKED Future Order: Radiology Order OB Detailed Complete Ultrasound Ordered ([id number]) Future Order: Lab Order Pap Smear With HPV Reflex If Ordered ASCUS (WPMPap1) Future Order: Lab Order Pap Smear With [...]
--- OUTSIDE RECORDS SUMMARY | 2017-09-13 20:52 | External Medical Summary | Continuity of Care Document ---
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 700 Provider: giselle Camacho, 7 Medical Sajan [address] [id number] Center [place] R, 1522, weeks gestation Bou[place] Peterson, of 120, Medical [facility] [id number], MD, [facility] 120, [place] [id number] Yuriy, tel: , [place]. MD, tel: [phone]. [id number] tel:[phone] Juan Antonio Yan Aug-3 [place] In Womens 0-201 [place]. 700 Sadia RAYA, [facility] [address] Center [address]22, Boubacar Peterson, [address] [place] [address] [id number], [id number] tel: , [place]. tel: [phone] Juan Antonio Yan Supervision of May-2 [place] Referring In Womens elderly 9-201 [place]. 700 Provider: giselle Camacho, 7 Medical Sajan [address] [email or web address] Center [place] R, 1522, weeks gestation Bou[place]acar Peterson, of 120, Medical [facility] [id number], MD, [facility] 120, [place] [id number] Yuriy, tel:316 , [place]. MD tel: [phone]. [id number] tel:[phone] Juan Antonio Yan Supervision of Aug-0 [place] Referring In Womens elderly 1-201 [place]. 700 Provider: eryn Camachoavijennifer, 7 [facility] [place] R, 1522, weeks Boubacar Peterson, gestation of 120, Medical MD, Yuriy, [place] [id number], MD, [place] 120, [place] [id number] Yuriy, tel: , [place]. MD tel: [phone]. [id number] tel:[phone] Juan Antonio Yan Supervision of Senthil-0 [place] Referring In Womens elderly 5-201 [place]. 700 Provider: giselle Camacho, 7 [facility] [place] R, 1522, [email or web address] weeks Boub[place] Peterson, gestation of 120, Medical MD, Yuriy, [place] , MD, [place] 120, [place] [id number] Yuriy, tel: , [place]. MD tel: [phone]. [id number] tel:[phone] Juan Antonio Yan Supervision of Apr-0 [place] Referring In Womens Ultrasound elderly 5-201 [place]. 700 Provider: giselle Camacho, 7 [facility] [place] R, 1522, [id number] weeks Bou[place] Peterson, gestation of 120, Medical MD, Yuriy, [place] [id number], MD, [place] 120, [place] [id number] Yuriy, tel: , [place]. MD tel: [phone]. [id number] tel:[phone] Juan Antonio Yan Supervision of Richy-0 [place] Referring In Womens elderly 6-201 [place]. 700 Provider: giselle Camacho, 7 [facility] [place] R, 1522, [id number] weeks [place] Peterson, gestation of 120, Medical MD, Yuriy, [place] [id number], MD, [place] 120, [place] [id number] Yuriy, tel: , . MD tel: [phone]. [id number] tel:[phone] Juan Antonio Yan Supervision of [place] Referring In Womens elderly [place]. 700 Provider: Sadia RAYA, multigravida, 7 Medical [facility] Box first [email or web address] Center [place] R, 1522, weeks gestation , Boubacar [facility] [place], of 120, Medical [place], Yan, [place] [id number], MD, [place] 120, [place] [id number] Yuriy, tel: , [place]. MD tel: [phone]. [id number] tel:[phone] Juan Antonio Yan Supervision of [place] Referring In Womens elderly - [place]. 700 Provider: Sadia RAYA, multigravida, 7 Medical [facility] Box first Center [place] R, 1522, trimesterEncntr , [address], screen for 120, Medical MD, infections w sexl Yuriy, [place] [id number], mode of MD, [place] 120, [place] transmissEncounte [id number] Yuriy, tel: r for screening , [place]. MD for oth tel: [phone]. infec/parastc [id number] tel: diseasesEncounter [phone] for screening of mother8 weeks gestation of Juan Antonio Yan Pap Smear Navarro Referring In Womens Screening, [place]. Provider: Sadia RAYA, CervixEncntr for [facility] Box manager of clinical exam Medical [place] R, 1522, (general) Center [facility] Gabby, (routine) w/o abn , [facility] MEAGAN, findings 120, [place] [id number], Yan, Boubacar 120, [place] Yuriy RHODES, tel: [phone] [place], , [place]. [id number]. tel: tel: [phone] Juan Antonio Yan Sep- [place] Referring In Womens [place]. 700 Provider: Sadia RAYA, 4 Medical [facility] Box Center [place] R, 1522, , Boubac[place] [facility], 120, Medical [place], Yan, [place] [id number], [place], [place] 120, [place] [id number] Yuriy, tel: , [place]. [place], tel: [phone]. [id number] tel:[phone] Associates [facility]y Jul- [place] Referring In Womens 3-201 [place]. 700 Provider: Health PA, 2 Medical [facility] Box [place] R, 1522, Dr, Boubacar 700 Gabby, 120, Medical MD, [facility] Dr [id number], MD, [facility] 120, [place] [id number] Yan, tel: , [place]. MD, tel: [phone]. [id number] tel:[phone] Associates [facility]y Jan-2 Jamilah In Womens 9-200 Jayne. Health PA, 9 700 [facility] 1522, [place] Dr Gabby, [facility], 120, [id number], Yan, [facility], tel: [phone] , [place]. tel: [phone] Family History Family Member Diagnosis Age At Onset Mother Anemia Maternal Grandfather Anemia Paternal aunt Cancer, breast Paternal grandmother Liver Disease Father Prostate Cancer Immunizations Vaccine Date Status Comments Influenza, injectable, quadrivalent, completed Source: Other Provider preservative free, 3 yrs or older Payers Payer name Insurance type Covered constitution party ID Authorization(s) [facility] [id number] Social History Type Description Quantity Date Captured [...] Radiology Order OB Detailed Complete Ultrasound Ordered ([id number]) Future Order: Lab Order Pap Smear With [...]
--- OUTSIDE RECORDS SUMMARY | 2017-09-13 20:54 | External Medical Summary | Continuity of Care Document ---
:1975 Author Organization [facility] Allergies Active Description Code Type Severity Reaction Onset Reported/ Identified Relationship Clinical to Patient Status Yes No Known 52118 3 N/A N/A Drug 0 Allergies Medications Medication Packaging Start Date Stop Date Route Dosage Sig Not Specified 04/26/2013 02/08/2017 WIDE SEAL use DIAPHRAGM PRN Tablet 02/10/2017 02/16/2017 AMOXICILLIN take 1 tablet by ORAL route every 8 hours for 7 days Problems Date Dx Coded Attending Type Code Diagnosis Diagnosed By 05/04/2017 Sajan Wood O09.522 Supervision of elderly multigravida, second trimester 05/04/2017 Sajan Wood3A.20 20 weeks gestation of 08/25/2017 Sajan Wood O09.523 Supervision of elderly multigravida, third trimester 08/25/2017 Sajan Wood3A.36 36 weeks gestation of Procedures Code Description Performed By Performed On OB 05/04/2017 87940 US, DETAILED, SNGL FETUS 08/24/2017 78341 Ultrasnd preg uterus, flwup/repeat Results Encounters ACCT No. Visit Discharge Status Pt. Type Provider Facility Loc./Unit Complaint Date/Time [id number] 08/24/2017 08/24/2017 [facility] Outpatient [place], 16:05:00 23:59:59 Sajan Seo [id number] 08/24/2017 08/24/2017 [facility] Outpatient [place], 15:45:00 23:59:59 Sajan Seo [id number] 08/09/2017 08/09/2017 [facility] Outpatient [place], 15:00:00 23:59:59 Sajan Seo [id number] 07/26/2017 07/26/2017 [facility] Outpatient [place], 15:00:00 23:59:59 aSjan Seo [id number] 07/12/2017 07/12/2017 [facility] Outpatient [place], 14:45:00 23:59:59 Sajan Seo [id number] 06/29/2017 06/29/2017 [facility] Outpatient [place], 08:15:00 23:59:59 Sajan Seo [id number] 06/28/2017 06/28/2017 [facility] Outpatient [place], 15:00:00 23:59:59 Sajan Seo [id number] 05/31/2017 05/31/2017 [facility] Outpatient [place], 15:00:00 23:59:59 Sajan Seo [id number] 05/04/2017 05/04/2017 [facility] Outpatient [place], 16:15:00 23:59:59 Sajan Seo [id number] 05/04/2017 05/04/2017 [facility] Outpatient [place], 15:45:00 23:59:59 Sajan Seo [id number] 04/29/2017 04/29/2017 [facility] Outpatient [place], 08:42:00 23:59:59 Sajan Seo [id number] 04/21/2017 04/21/2017 [facility] Outpatient [place], 17:47:00 23:59:59 Sajan Seo [id number] 04/05/2017 04/05/2017 [facility] Outpatient [place], 16:15:00 23:59:59 Sajan Seo [id number] 03/08/2017 03/08/2017 [facility] Out[facility] [place], 16:15:00 23:59:59 Sajan Seo [id number] 02/10/2017 02/10/2017 [facility] Out[facility] [place], 09:10:00 23:59:59 Sajan Seo [id number] 02/08/2017 02/08/2017 [facility] [place], 15:15:00 23:59:59 Sajan Seo [id number] 06/28/2016 06/28/2016 [facility] Out[facility] [place], 13:43:00 23:59:59 Sajan Seo [id number] 01/14/2016 01/14/2016 [facility] Outpatient Navarro, 15:15:00 23:59:59 Brianna Sheldon [id number] 09/06/2017 Document 14:50:00 Registration [id number] 08/30/2017 Document 15:00:00 Registration [id number] 02/08/2017 Document 15:09:52 Registration
--- OUTSIDE RECORDS SUMMARY | 2017-09-13 20:54 | External Medical Summary | Continuity of Care Document ---
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 700 Provider: giselle Camacho, 7 Medical [facility] Box [facility] Center [place] R, 1522, [id number] weeks Boubacar Peterson, gestation of 120, Medical [place], [facility] [id number], [place], [place] 120, [place] [id number] Yuriy, tel: , [place]. [place], tel: [phone]. [id number] tel:[phone] Juan Antonio Yan Supervision of 0 [place] Referring In Womens Ultrasound elderly 5-201 [place]. 700 Provider: giselle Camacho, 7 Medical [facility] Box second Center [place] R, 1522, [email or web address] weeks Boubacar Peterson, gestation of 120, Medical [place], [facility] [id number], [place], [place] 120, [place] [id number] Yuriy, tel: , [place]. [place], tel: [phone]. [id number] tel:[phone] Juan Antonio Yan Supervision of 0 [place] Referring In Womens elderly 6-201 [place]. 700 Provider: giselle Camacho, 7 [facility] Box second Center [place] R, 1522, [email or web address] weeks Boub[place] Peterson, gestation of 120, Medical [place], [facility] [id number], [place], [place] 120, [place] [id number] Yuriy, tel: , . [place] tel: [phone]. [id number] tel:[phone] Juan Antonio Yan Supervision of [place] Referring In Womens elderly [place]. 700 Provider: Sadia RAYA, multigravida, 7 Medical [facility] Box first [id number] Center [place] Seo, 1522, weeks gestation , [facility] Gerardo Pierre, of 120, Medical [place], Yuriy, [place] [id number], [place], [facility] 120, [place] [id number] Yuriy, tel: , [place]. [place] tel: [phone]. [id number] tel:[phone] Juan Antonio Yan Supervision of [place] Referring In Womens elderly - [place]. 700 Provider: Sadia RAYA, multigravida, 7 Medical [facility] Box first [place] R, 1522, trimesterEncamilcare , [place] [address] Gabby r for 120, Medical [place], screening of [facility] [id number], mother8 weeks [place], [facility] 120, [place] gestation of [id number] Yuriy, tel: pregnancyEncntr , [place]. [place], screen for tel:[phone]. 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 Provider: Sadia RAYA, (routine) w/o abn 6 700 [facility] findingsPap Smear [facility] [place] Seo, 1522, Screening, Cervix Center [address], [facility], 120, [place] [id number], [place], [facility] 120, [place] Yuriy RHODES, tel:[phone] [place], , [place]. [id number]. tel: tel: [phone] Juan Antonio Yan Sep- [place] Referring In Womens [place]. 700 Provider: Sadia RAYA, 4 Medical [facility] Box [place] R, 1522, , [place] Gerardo Pierre, 120, Medical Yuriy RHODES, [place] [id number], [place], [facility] 120, [place] [id number] Yuriy, tel: , [place]. [place] tel:[phone]. [id number] tel:[phone] Juan Antonio Yan Jul- [place] Referring In Womens 3-201 [place]. 700 Provider: Health PA, 2 Medical [place] [address] [place] R, 1522, Dr, Bou[place] 700 Gabby, 120, Medical [place], [facility] Dr [id number], [place], [place] 120, [place] [id number] Yan, tel: , [place]. [place], tel: [phone]. [id number] tel:[phone] Juan Antonio Yan Jan- Jamilah In Womens 9-200 Jayne. Health PA, 9 700 [facility] 1522, [place] [address] Gabby, [facility], [facility], [id number], [place], [facility], tel: [phone] , [place]. tel: [phone] Family History Family Member Diagnosis Age At Onset Mother Anemia Maternal Grandfather Anemia Paternal aunt Cancer, breast Paternal grandmother Liver Disease Father Prostate Cancer Immunizations Vaccine Date Status Comments Influenza, injectable, quadrivalent, completed Source: Other Provider preservative free, 3 yrs or older Payers Payer name Insurance type Covered democrat ID Authorization(s) YOHANNES RHODES [id number] Social History Type Description Quantity Date Captured Alcohol Use Details No Caffeine Use Details Unknown Tobacco Use Status Unknown Smoking Status Never smoker Vital Signs Date / Height Weight BMI Pulse Blood Temperature Respiratory Body Head BMI Time: Rate Pressure Rate Surface Circumference percentile Area 197.40 33.3 / lbs 6 mm[Hg] 4:25 kg/m PM eter (2) Chief Complaint And Reason For Visit Unknown Chief Complaint And Reason For Visit Reason For Referral Reason For Referral Unknown Plan Of Care Date Type Action Status Goal Lifestyle education regarding completed diet Appointment Teetee Larry BOOKED Future Order: Lab Order Pap Smear With HPV Reflex If Ordered ASCUS (WPMPap1) Future Order: Radiology Order OB Detailed Complete Ultrasound Ordered ([id number]) Future Order: Lab Order Pap Smear With [...]
[2017-09-13] MEDS ORDERED: AMPICILLIN 2 GM in NS 100 ML IV ONE (21:00)
[2017-09-13 21:03] VITALS: BMI 34.7
[2017-09-13] MEDS ORDERED: HYDROCORTISONE 2.5% CREAM 30gm RECTALLY PRN (23:56)
[2017-09-13] MEDS ORDERED: OXYTOCIN DRIP 30 UNIT/500 ML ML IV SCH (23:56)
[2017-09-13] MEDS ORDERED: BENZOCAINE 20% SPRAY 0.5 ML MM ONE (23:56)
[2017-09-13] MEDS ORDERED: HYDROCODONE/APAP 5mg/325mg TABLET PO PRN (23:56)
[2017-09-13] MEDS ORDERED: DiphenhydrAMINE 25 MG CAPSULE PO PRN (23:56)
[2017-09-14] MEDS: IBUPROFEN 800 MG TABLET PO PRN ×2 (01:17→18:35)
[2017-09-14 04:02] VITALS: RESP 16
--- NOTE | 2017-09-14 07:50 | Labor and Delivery Note ---
DATE OF DELIVERY: 09/13/2017 DIAGNOSES 1. 41-year-old white female, G5, P4, at 39.2 weeks gestational age. 2. PROM. 3. Advanced maternal age. 4. GBS prophylaxis. 5. Pitocin induction for PROM. 6. Spontaneous vaginal delivery. 7. Female infant, 8/9 Apgars, 3549 g (Robyn Ling). 8. First-degree perineal laceration - repaired under local. This is a patient of mine who had a little bit of spotting this morning and then was seen in the office this afternoon. She was fingertip dilated at that time with the cervix very posterior. Around 16:30 she had spontaneous rupture of membranes but didn't present to Labor & Delivery until around 20:30. She was grossly ruptured, so she was admitted and GBS prophylaxis was started at that time. Her cervix was 1 cm and she wasn't in a regular contraction pattern , so I started Pitocin induction. It reached a maximum of 14 milliunits a minute. When she made it a little past 3 cm dilated, then she progressed extremely rapidly and had a strong urge to push. We had a spontaneous vaginal delivery from the OA position. Infant was bulb suctioned after delivery of the head and then again after delivery of the body. Cord was allowed to drain for about a minute and 45 seconds and then it was doubly clamped and cut. The was then placed on the mother's abdomen. The placenta delivered spontaneously. There was a small first-degree perineal laceration that was repaired with 3-0 chromic after anesthetizing with 1% lidocaine. EBL is 350. GBS positive. Rubella immune. Maternal blood type A+. MTDD
[2017-09-14] MEDS ORDERED: DOCUSATE CALCIUM 240 MG CAPSULE PO SCH (09:00)
--- NOTE | 2017-09-14 12:34 | OB/GYN Progress Note ---
OB-Progress Note Free Text - Date Date: 09/14/17 - Progress Note Progress Note: vss af doing well no c/o cont current care plan q&a-krb
[2017-09-15] MEDS: IBUPROFEN 800 MG TABLET PO PRN ×2 (06:14→16:02)
--- NOTE | 2017-09-15 08:36 | Progress Note ---
OB PP Progress Note Free Text - Date Date: 09/15/17 - Progress Note Progress Note: doing well no c/o dc to home today q&a instructions reviewed
[2017-09-15 14:19] VITALS: BP 135/76; PULSE 72; TEMP 98.1; O2SAT 96
== END 2017-09-15 20:32 | disposition home or self-care (01) | DRG 775 ==
LOC: OBOBS 20:24 → MC 20:25
PROVIDERS: ADMIT Obstetrics & Gynecology; ATTEND Obstetrics & Gynecology